=== PATIENT | male | born 1990 | race Caucasian/White ===

== ENCOUNTER 2019-01-15 10:23 | Emergency (ER) | payer OTHER ==
[2019-01-15] MEDS: DEXAMETHASONE 10 MG/ML 1 ML INJ IM (11:19)
[2019-01-15] MEDS: KETOROLAC 30 MG INJ IM (11:19)
== END 2019-01-15 11:59 | disposition home or self-care (01) ==
LOC: FTE 11:59
DX: M54.5 Low back pain (principal)
CPT/HCPCS: 96372; 99284-25; J1100

== ENCOUNTER 2019-04-17 19:08 | Emergency (ER) | payer OTHER ==
[2019-04-17 20:05] LABS: ADD MAN DIFF? NO
[2019-04-17 20:10] LABS: BASOPHIL # 0.1 10^3/ul (0.0-0.1); BASOPHILS % 0.4 % (0.0-2.0); EOSINOPHILS # 0.1 10^3/ul (0.0-0.5); EOSINOPHILS % 0.4 % (0.0-7.0); HEMATOCRIT 44.4 % (42.0-52.0); HEMOGLOBIN 15.1 g/dl (14.0-18.0); LYMPHOCYTES # 1.2 10^3/ul (0.8-2.9); LYMPHOCYTES % 8.8 % (15.0-51.0); MEAN CORPUSCULAR HEMOGLOBIN 29.4 pg (29.0-33.0); MEAN CORPUSCULAR VOLUME 86.4 fl (82.0-101.0); MEAN PLATELET VOLUME 8.7 fl (7.4-10.4); MONOCYTE # 0.7 10^3/ul (0.3-0.9); MONOCYTES % 4.9 % (0.0-11.0); NEUTROPHIL # 11.4 10^3/ul (1.6-7.5); NEUTROPHILS % 85.1 % (39.0-77.0); PLATELET COUNT 466 10^3/UL (140-415); RED BLOOD COUNT 5.14 10^6/ul (4.70-6.10); RED CELL DISTRIBUTION WIDTH 12.5 % (11.5-14.5)
[2019-04-17 20:10] LABS: WHITE BLOOD COUNT 13.4 10^3/ul (4.8-10.8)
[2019-04-17 20:29] LABS: ALANINE AMINOTRANSFERASE 25 IU/L (13-69); ALBUMIN 4.5 g/dl (3.3-4.9); ALBUMIN/GLOBULIN RATIO 1.36; ALKALINE PHOSPHATASE 70 IU/L (42-121); ANION GAP 17 (5-13); ASPARTATE AMINO TRANSFERASE 30 IU/L (15-46); BLOOD UREA NITROGEN 17 mg/dl (7-20); CALCIUM 9.6 mg/dl (8.4-10.2); CARBON DIOXIDE 23 mmol/L (21-31); CHLORIDE 104 mmol/L (97-110); CREATINE KINASE 257 IU/L (23-200); CREATININE 1.65 mg/dl (0.61-1.24); Estimated GFR 50 mL/min (>60); GLUCOSE 109 mg/dl (70-220); POTASSIUM 3.4 mmol/L (3.5-5.1); SODIUM 144 mmol/L (135-144); TOTAL PROTEIN 7.8 g/dl (6.1-8.1)
[2019-04-17 20:30] LABS: ACETAMINOPHEN < 10.0 ug/ml (10.0-30.0); ETHANOL < 10.0 mg/dl (0-0); SALICYLATE < 1.0 mg/dl (5.0-30.0)
[2019-04-17 20:46] LABS: ADD UMIC YES; UR ASCORBIC ACID NEGATIVE (NEGATIVE); UR BILIRUBIN (Dip) NEGATIVE (NEGATIVE); UR BLOOD (Dip) NEGATIVE (NEGATIVE); UR CLARITY SLIGHTLY CLOUDY (CLEAR); UR COLOR AMBER (YELLOW); UR GLUCOSE (Dip) NEGATIVE (NEGATIVE); UR KETONES (Dip) NEGATIVE (NEGATIVE); UR LEUKOCYTE ESTERASE (Dip) NEGATIVE Leu/ul (NEGATIVE); UR MUCUS MANY /HPF (NONE SEEN); UR NITRITE (Dip) NEGATIVE (NEGATIVE); UR RBC 3 /HPF (0-5); UR TOTAL PROTEIN (Dip) 1+ mg/dl (NEGATIVE); UR UROBILINOGEN (Dip) 1+ mg/dL (NEGATIVE); UR WBC 1 /HPF (0-5)
[2019-04-17 20:52] LABS: BARBITURATES Negative (NEGATIVE); CANNABINOIDS Positive (NEGATIVE); COCAINE Negative (NEGATIVE); OPIATES Negative (NEGATIVE)
[2019-04-17 20:54] LABS: BENZODIAZEPINES Positive (NEGATIVE)
[2019-04-17 20:55] LABS: AMPHETAMINE/METHAMPHETAMINE POSITIVE (NEGATIVE)
[2019-04-17] MEDS ORDERED: DIPHENHYDRAMINE 50 MG INJ (20:57)
[2019-04-17] MEDS ORDERED: LORAZEPAM 2 MG INJ (20:58)
[2019-04-17] MEDS ORDERED: HALOPERIDOL 5 MG INJ (20:58)
[2019-04-17] MEDS: POTASSIUM CHLORIDE (SR) 20 MEQ TAB PO (21:00)
[2019-04-17] MEDS: HALOPERIDOL 5 MG INJ IM (21:02)
[2019-04-17] MEDS: DIPHENHYDRAMINE 50 MG INJ IM (21:02)
[2019-04-17] MEDS: LORAZEPAM 2 MG INJ IM (21:02)
[2019-04-18] MEDS ORDERED: LORAZEPAM 2 MG INJ (11:15)
[2019-04-18] MEDS ORDERED: HALOPERIDOL 5 MG INJ (11:15)
[2019-04-18] MEDS ORDERED: DIPHENHYDRAMINE 50 MG INJ (11:15)
[2019-04-18] MEDS: HALOPERIDOL 5 MG INJ IM (11:19)
[2019-04-18] MEDS: LORAZEPAM 2 MG INJ IM (11:19)
[2019-04-18] MEDS: DIPHENHYDRAMINE 50 MG INJ IM (11:19)
== END 2019-04-18 11:55 ==
LOC: E/R 04-18 11:55
DX: F29 Unspecified psychosis not due to a substance or known physiological condition (principal); F19.20 Other psychoactive substance dependence, uncomplicated; E87.6 Hypokalemia; N28.9 Disorder of kidney and ureter, unspecified; R40.2142 Coma scale, eyes open, spontaneous, at arrival to emergency department; R40.2242 Coma scale, best verbal response, confused conversation, at arrival to emergency department; R40.2362 Coma scale, best motor response, obeys commands, at arrival to emergency department
CPT/HCPCS: 80053; 80307; 81001; 82550; 85025; 96372; 99285-25